=== PATIENT | male | born 1960 | race African-American/Black ===

== ENCOUNTER 2017-06-10 09:09 | Emergency (ER) | payer OTHER ==
[~2017-06-10] VITALS: Ht 182.9 cm; Wt 100.0 kg
[~2017-06-10 09:09] MED LIST: FLEXERIL 1010 MG/TAB PO; NORCO 325 MG-51 TAB PO
[2017-06-10 09:12] VITALS: TEMP 98.1
[2017-06-10] MEDS ORDERED: PRILOSEC 20MG20 MG PO (09:28)
[2017-06-10] MEDS ORDERED: ROXICODONE 55 MG/TAB PO (11:37)
[2017-06-10 11:52] VITALS: BP 133/72; PULSE 70
== END 2017-06-10 11:55 | disposition home or self-care (01) ==
LOC: COL.ER 09:09
DX: G89.18 Other acute postprocedural pain (principal); M25.511 Pain in right shoulder
CPT/HCPCS: J1170; J2550; J7030

== ENCOUNTER → 2019-08-12 | Outpatient (CLI) | payer OTHER ==
[~2019-08-12] MED LIST changes: +PRILOSEC 20MG20 MG PO; +ROXICODONE 55 MG/TAB PO
== END ==
LOC: COL.RAD 13:37
DX: M19.171 Post-traumatic osteoarthritis, right ankle and foot (principal)
CPT/HCPCS: J3301; Q9967

== ENCOUNTER → 2019-10-01 | Outpatient (CLI) | payer OTHER | LOC: COL.RAD 09-26 10:16 | DX: M47.817 Spondylosis without myelopathy or radiculopathy, lumbosacral region (principal) ==

== ENCOUNTER 2019-12-17 13:57 | Outpatient (RCR) | payer OTHER | END 2020-03-16 | disposition home or self-care (01) | LOC: WSOH | DX: F17.210 Nicotine dependence, cigarettes, uncomplicated (principal); E78.00 Pure hypercholesterolemia, unspecified; I10 Essential (primary) hypertension; K21.9 Gastro-esophageal reflux disease without esophagitis; K86.1 Other chronic pancreatitis; M25.511 Pain in right shoulder; Z98.890 Other specified postprocedural states; W00.0XXA Fall on same level due to ice and snow, initial encounter ==

== ENCOUNTER 2020-06-15 10:31 | Emergency (ER) | payer OTHER ==
[~2020-06-15] VITALS: Ht 182.9 cm; Wt 100.0 kg
[2020-06-15 10:54] VITALS: TEMP 97.8
[2020-06-15 11:51] LABS: BASO % 0.9 % (0.0-2.0); EOS # 0.2 (0.0-0.7); EOS % 4.4 % (0-4.0); GRAN # 1.8 (1.4-6.5); GRAN % 40.1 % (42.2-75.2); HEMATOCRIT 39.7 % (42.0-52.0); HEMOGLOBIN 13.1 g/dl (13.5-18.0); LYMPH # 2.1 (1.2-3.4); LYMPH % 48.6 % (20.0-51.0); MEAN CELL VOLUME 87 fl (80.0-100.0); MEAN CORPUSCULAR HEMOGLOBIN 29 pg (27.0-31.0); MEAN CORPUSCULAR HGB CONC 33 g/dl (33.0-37.0); MEAN PLATELET VOLUME 10.3 fl (7.4-10.4); MONO # 0.3 (0.1-0.6); PLATELET COUNT 215 K/mm3 (130-400); RED BLOOD COUNT 4.58 M/mm3 (4.20-5.60); REDCELL DISTRIBUTION WIDTH-CV 13.9 % (11.5-14.5)
[2020-06-15 12:05] LABS: ALANINE AMINOTRANSFERASE 19 U/L (4-49); ALBUMIN 3.8 gm/dL (3.5-5.0); ALKALINE PHOSPHATASE 44 U/L (50-136); ANION GAP 5 mmol/L (7-16); AST,SGOT 20 U/L (15-37); BILIRUBIN,TOTAL 0.5 mg/dL (0.0-1.0); BLOOD UREA NITROGEN 14 mg/dL (9-20); CALCIUM 9.1 mg/dL (8.4-10.2); CARBON DIOXIDE 26 mmol/L (22-30); CHLORIDE 107 mmol/L (98-107); GLUCOSE 104 mg/dL (74-106); LIPASE 461 U/L (23-300); POTASSIUM 3.8 mmol/L (3.4-5.0); SODIUM 138 mmol/L (137-145); TOTAL PROTEIN 7.2 gm/dL (6.4-8.2)
[2020-06-15] MEDS ORDERED: NAPROSYN 2250 MG/TAB PO (12:05)
[2020-06-15 12:18] LABS: TROPONIN-I < 0.012 ng/mL (0.000-0.035)
[2020-06-15 12:58] LABS: PROTHROMBIN TIME 11.6 SECONDS (9.7-12.8)
[2020-06-15 13:54] LABS: D-DIMER < 200.00 ng/mLDDu (200-230)
[2020-06-15 17:07] VITALS: BP 138/95; PULSE 59
== END 2020-06-15 17:07 | disposition home or self-care (01) ==
LOC: COL.ER 10:31
PROVIDERS: Emergency Medicine
DX: R06.02 Shortness of breath (principal); F17.210 Nicotine dependence, cigarettes, uncomplicated
CPT/HCPCS: J1200; J2930; J7030

== ENCOUNTER 2024-05-14 05:32 | Day surgery (SDC) | payer OTHER ==
[2024-05-14] VITALS (7 sets, daily range): BP systolic 125–184; BP diastolic 71–89; PULSE 57–64; TEMP 97–98.1
[~2024-05-14] VITALS: Ht 182.9 cm; Wt 94.6 kg
[~2024-05-14 05:32] MED LIST changes: +LR 1,000 ML IV SCH; +NAPROSYN 2250 MG/TAB PO
[2024-05-14 06:45] LABS: BASO # 0.1 K/mm3 (0.0-0.2); BASO % 0.8 % (0.0-2.0); EOS # 0.4 K/mm3 (0.0-0.7); EOS % 4.9 % (0.0-4.0); GRAN # 3.9 K/mm3 (1.4-6.5); GRAN % 51.9 % (42.2-75.2); HEMATOCRIT 43.9 % (42.0-52.0); LYMPH # 2.6 K/mm3 (1.2-3.4); LYMPH % 34.7 % (20.0-51.0); MEAN CELL VOLUME 86 fl (80.0-100.0); MEAN CORPUSCULAR HEMOGLOBIN 27 pg (27-31); MEAN CORPUSCULAR HGB CONC 32 g/dl (33.0-37.0); MEAN PLATELET VOLUME 10.8 fl (7.4-10.4); MONO # 0.6 K/mm3 (0.1-0.6); MONO % 7.4 % (1.7-9.3); PLATELET COUNT 189 K/mm3 (130-400); RED BLOOD COUNT 5.12 M/mm3 (4.20-5.60); REDCELL DISTRIBUTION WIDTH-CV 14.2 % (11.5-14.5)
[2024-05-14] MEDS ORDERED: Lidocaine PF 2% (20 MG/ML) 5 ML VIAL ONE (06:45)
[2024-05-14] MEDS ORDERED: Rocuronium 50 MG/5 ML Multi-Dose VIAL ONE (06:46)
[2024-05-14] MEDS ORDERED: Midazolam 2 MG/2 ML VIAL ONE (06:48)
[2024-05-14] MEDS ORDERED: fentaNYL 50 MCG/ML 2 ML VIAL ONE (06:48)
[2024-05-14 07:05] LABS: ALBUMIN 3.3 g/dL (3.4-4.8); BILIRUBIN,TOTAL 0.3 mg/dL (0.2-1.2); CALCIUM 9.2 mg/dL (8.4-10.2); CREATININE, serum 0.91 mg/dL (0.72-1.25); POTASSIUM 3.9 mEq/L (3.5-4.5); PROTHROMBIN TIME 10.7 SECONDS (9.7-12.8); TOTAL PROTEIN 6.8 g/dl (6.2-8.1)
[2024-05-14] MEDS ORDERED: CREON 120000 U-1 ECC PO (07:13)
[2024-05-14] MEDS ORDERED: NEURONTIN300 MG/CAP PO (07:13)
[2024-05-14] MEDS ORDERED: ATARAX 25MG25 MG/TAB PO (07:14)
[2024-05-14] MEDS ORDERED: KLOXXADO8 MG NS (07:15)
[2024-05-14] MEDS ORDERED: oxyCODONE/Acetaminophen 5-325 MG TAB PO PRN (07:15)
[2024-05-14] MEDS ORDERED: PROAIR HFA0.09 MG/AC IH (07:15)
[2024-05-14] MEDS ORDERED: LIPITOR 80MG80 MG PO (07:16)
[2024-05-14] MEDS ORDERED: OSCAL 500 TAB500 MG PO (07:18)
[2024-05-14] MEDS ORDERED: FIBERCON (07:19)
[2024-05-14] MEDS ORDERED: NAPRELAN375 MG (07:20)
[2024-05-14] MEDS ORDERED: PEPCID 20MG TAB20 MG PO (07:21)
[2024-05-14] MEDS ORDERED: INDERAL 20MG20 MG PO (07:27)
[2024-05-14] MEDS ORDERED: ePHEDrine 50 MG/ML VIAL ONE ×2 (08:01→12:10)
[2024-05-14] MEDS ORDERED: Topical Skin Adhesive 1 EACH (1 ML) TOP ONE (08:15)
[2024-05-14] MEDS ORDERED: hydrALAZINE 20 MG/ML 1 ML VIAL IV PRN (08:30)
[2024-05-14] MEDS ORDERED: Ondansetron 4 MG/2 ML VIAL IV PRN (08:30)
[2024-05-14] MEDS ORDERED: HYDROmorphone 1 MG/1 ML SYRINGE [PACU/SDC ONLY] IV PRN (08:30)
[2024-05-14] MEDS ORDERED: fentaNYL 50 MCG/ML 1 ML SYRINGE/VIAL [PACU/SDC ONLY] IV PRN (08:30)
--- NOTE | 2024-05-14 10:08 | NUR ---
REPORT COMPLETED WITH ZAHEER Nogueira RN. TRANSPORTED PATIENT FROM PACU TO BAY 1 VIA CART. PATIENT IS DROWSY, AROUSES TO NAME. ORIENTED X3. DENIES PAIN, NAUSEA AND SHORTNESS OF BREATH. BREATHING REGULAR AND UNLABORED ON ROOM AIR. SKIN WARM AND DRY. STATES HIS LEFT ARM IS "NUMB". HAS NO COMPLAINTS. LEFT RADIAL PULSE STRONG AND REGULAR. LEFT FINGERS CAPILLARY REFILL <3 SECONDS. VISIBLE FOAM TAPE DRESSING TO LEFT SHOULDER. DRESSING IS CLEAN, DRY AND INTACT. ARM SLING PRESENT IN TO LEFT ARM. ICE OVER LEFT SHOULDER. SEE CHART FOR VITAL SIGNS. PATIENT HAS NO COMPLAINTS. CALL LIGHT IN REACH.
--- NOTE | 2024-05-14 10:23 | NUR ---
DISCUSSED WITH PATIENT CURRENT BLOOD PRESSURE (184/89) AND ORDER PARAMETERS FOR APRESOLINE. PATIENT VERBALIZED UNDERSTANDING, DENIES PAIN. SEE EMAR FOR APRESOLINE ADMINISTERED.
--- NOTE | 2024-05-14 10:24 | NUR ---
PATIENT IS ALERT AND ORIENTED. HAD PUDDING, ÁNGEL CRACKERS AND WATER. DENIES PAIN, NAUSEA AND SHORTNESS OF BREATH. VOIDED 150MLS CLEAR YELLOW URINE.
--- NOTE | 2024-05-14 11:15 | NUR ---
1102: DISCHARGE TEACHING COMPLETED WITH PRINTED EDUCATION AND INSTRUCTIONS SENT HOME WITH PATIENT. PATIENT INFORMED OF FOLLOW UP APPOINTMENT DATE, TIME AND LOCATION. PATIENT VERBALIZED UNDERSTANDING. 1110: LEFT SHOULDER DRESSING CLEAN, DRY AND INTACT. LEFT ARM SLING IN PLACE. NO COMPLAINTS. PATIENT DENIES PAIN, NAUSEA AND SHORTNESS OF BREATH. LEFT RADIAL PULSE STRONG AND REGULAR. SKIN WARM AND DRY. IV REMOVED. GAUZE AND COBAN PLACED OVER SITE. 1115: PATIENT DISCHARGED HOME WITH [facility].
== END 2024-05-14 11:15 | disposition home or self-care (01) ==
LOC: SDCO 05:32
PROVIDERS: Nurse Anesthetist, Certified Registered
DX: M75.122 Complete rotator cuff tear or rupture of left shoulder, not specified as traumatic (principal); M75.22 Bicipital tendinitis, left shoulder; G89.18 Other acute postprocedural pain; K21.9 Gastro-esophageal reflux disease without esophagitis; F17.210 Nicotine dependence, cigarettes, uncomplicated
CPT/HCPCS: A4619; C1713; J0360; J2250; J2704; J3010; J7120